=== PATIENT | female | born 1990 | race Caucasian/White ===

== ENCOUNTER → 2019-09-25 | Outpatient (CLI) | payer BC ==
[~2019-09-25] MED LIST: LEVO50TA6 PO; OXYC1TAB12 PO
--- NOTE | 2019-09-25 14:08 | Diagnostic Imaging Report ---
INDICATION: Thumb pain. Three views were obtained. FINDINGS: The alignment is normal. There is no fracture or dislocation. Soft tissues are unremarkable. IMPRESSION: No acute fracture or dislocation. Dictated by: Dictated on workstation # [id number]
== END ==
LOC: RAD FS 13:54
PROVIDERS: ATTEND Nurse Practitioner
DX: S63.602A Unspecified sprain of left thumb, initial encounter (principal); X58.XXXA Exposure to other specified factors, initial encounter
CPT/HCPCS: 73140

== ENCOUNTER 2021-05-12 16:16 | Emergency (ER) | payer BC ==
[~2021-05-12] VITALS: Ht 160 cm; Wt 63.5 kg
[2021-05-12 16:57] LABS: BILIRUBIN,URINE NEGATIVE (NEGATIVE); CLARITY,URINE CLEAR; COLOR,URINE PALE YELLOW; GLUCOSE, URINE (UA) NEGATIVE (NEGATIVE); KETONES,URINE NEGATIVE (NEGATIVE); LEUKOCYTE ESTERASE ,URINE 2+ (NEGATIVE); NITRITE,URINE NEGATIVE (NEGATIVE); PROTEIN,URINE NEGATIVE (NEGATIVE)
[2021-05-12 16:58] LABS: BACTERIA,URINE TRACE /HPF; RBC,URINE RARE /HPF; SQUAMOUS EPITHELIAL CELL,UR 0-2 /HPF
--- NOTE | 2021-05-12 17:04 | ED GU-Female ---
General Chief Complaint: OB < 20 WEEKS Stated Complaint: OB,VAGINAL BLEEDING Nursing Triage Note: PT ARRIVED BY PRIVATE VEHICLE WITH VAGINAL BLEEDING AND 10 WEEKS . PT WAS ALERT, ORIENTED X 4 AND AMBULATORY. PT PROVIDED URINE SAMPLE ON ARRIVAL AND AMBULATED TO ROOM 2. PT'S VITALS WERE DONE. PT STATED ONSET WAS AFTER SCHOOL AROUND 1530 WHEN SHE NOTICED SHE HAD BEEN BLEEDING. SHE STATED IT WAS NOT WHEN URINATING, BUT IN THE BOTTOM OF HER UNDERWEAR. PT STATED SHE IS 11 WEEKS TOMORROW AND HER OBGYN IS DR. PYLE. PT HAS SEEN LASHANDA AND SHE HAS DONE AN US. REPORT WAS GIVNE TO PROVIDER. Source: patient Exam Limitations: no limitations (NANCY EL MD) History of Present Illness Date Seen by Provider: May 12, 2021 Time Seen by Provider: 16:36 Initial Comments Here with report of vaginal bleeding x1 today and had a quarter size clot in her underwear after work. No persistent bleeding since. Denies vaginal cramping or pain. Last sexual activity 2 nights ago. No pain with that. Denies vaginal discharge otherwise. History of 2 previous live births and 1 miscarriage in between. This is her fourth . She reports being a negative and has to receive RhoGam. Her is be positive blood type. Denies nausea, vomiting or weakness Timing/Duration: this afternoon Severity/Quality: mild Location: vaginal Radiation: none Activities at Onset: none Sexual [place] History: less than 2 months ago, single partner Modifying Factors: Improves With Resting Associated Symptoms: No abdominal pain, No dysuria, No fever/chills, No nausea/vomiting (NANCY EL MD) Allergies and Home Medications Allergies Coded Allergies: No Known Drug Allergies (Unverified , 10/08/15) Patient Home Medication List Home Medication List Reviewed: Yes (NANCY EL MD) Levothyroxine Sodium (Levothyroxine Sodium) 50 Mcg Tablet, 50 MCG PO DAILY, (Reported) Entered as Reported by: JUDY SANTOS on 10/08/15 0942 Oxycodone HCl/Acetaminophen (Percocet 10-325 mg Tablet) 1 Each Tablet, 1-2 TAB PO Q4H PRN for PAIN Prescribed by: YAS HARKINS on 10/09/15 8589 Review of Systems Review of Systems Constitutional: No chills, No fever Respiratory: No cough, No short of breath Cardiovascular: no symptoms reported Gastrointestinal: No abdominal pain, No nausea, No vomiting Genitourinary: see HPI : Yes Psychiatric/Neurological: No Symptoms Reported (NANCY EL MD) Past Mnidiwy-Nqfvvz-Xwjqaq Hx Patient Social History Tobacco Use?: No Smoking Status: Never a Smoker Smokeless Tobacco Frequency: Never a User Substance use?: No Alcohol Use?: No Pt feels they are or have been: No (NANCY EL MD) Immunizations Up To Date First/Initial COVID19 Vaccinat: N/A Second COVID19 Vaccination Andrea: N/A 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 Final: N/A (NANCY EL MD) Past Medical History Surgeries: Yes (D&C) : Yes Last Menstrual Period: Feb 14, 2021 Reproductive Disorders: Yes (BLIGHTED OVUM, FIRST MISCARRIAGE) Female Reproductive Disorders: Menstrual Problems, Endometriosis, Ovarian Cyst HIV/AIDS: No Kidney Infection 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 oz. 61.941526xm; 24.00 BMI Method: General Appearance: WD/WN, no apparent distress Cardiovascular: regular rate, rhythm, no murmur Respiratory: lungs clear, normal breath sounds Gastrointestinal: non tender, soft, no organomegaly, no pulsatile mass Neurologic/Psychiatric: alert, oriented x 3 Skin: normal color, warm/dry (NANCY EL MD) Progress/Results/Core Measures Suspected Sepsis SIRS Temperature: Pulse: 104 Respiratory Rate: 18 Blood Pressure 129 /90 Mean: 103 (NANCY EL MD) Results/Orders Lab Results Laboratory Tests Test 05/12/21 16:28 05/12/21 18:13 Range/Units Urine Color PALE YELLOW Urine Clarity CLEAR Urine pH 6.0 5-9 Urine Specific [place] <=1.005 1.016-1.022 Urine Protein NEGATIVE NEGATIVE Urine Glucose (UA) NEGATIVE NEGATIVE Urine Ketones NEGATIVE NEGATIVE Urine Nitrite NEGATIVE NEGATIVE Urine Bilirubin NEGATIVE NEGATIVE Urine Urobilinogen 0.2 < = 1.0 MG/DL Urine Leukocyte Esterase 2+ H NEGATIVE Urine RBC (Auto) 2+ H NEGATIVE Urine RBC RARE /HPF Urine WBC 2-5 /HPF Urine Squamous Epithelial Cells 0-2 /HPF Urine Crystals NONE /LPF Urine Bacteria TRACE /HPF Urine Casts NONE /LPF Urine Mucus NEGATIVE /LPF Urine Culture Indicated NO White Blood Count 8.8 4.3-11.0 10^3/uL Red Blood Count 3.83 3.80-5.11 10^6/uL Hemoglobin 11.5 11.5-16.0 g/dL Hematocrit 34 L 35-52 % Mean Corpuscular Volume 88 80-99 fL Mean Corpuscular Hemoglobin 30 25-34 pg Mean Corpuscular Hemoglobin Concent 34 32-36 g/dL Red Cell Distribution Width 12.1 10.0-14.5 % Platelet Count 198 130-400 10^3/uL Mean Platelet Volume 9.7 9.0-12.2 fL Immature Granulocyte % (Auto) 0 % Neutrophils (%) (Auto) 57 42-75 % Lymphocytes (%) (Auto) 36 12-44 % Monocytes (%) (Auto) 5 0-12 % Eosinophils (%) (Auto) 1 0-10 % Basophils (%) (Auto) 0 0-10 % Neutrophils # (Auto) 5.0 1.8-7.8 10^3/uL Lymphocytes # (Auto) 3.2 1.0-4.0 10^3/uL Monocytes # (Auto) 0.5 0.0-1.0 10^3/uL Eosinophils # (Auto) 0.1 0.0-0.3 10^3/uL Basophils # (Auto) 0.0 0.0-0.1 10^3/uL Immature Granulocyte # (Auto) 0.0 0.0-0.1 10^3/uL (RADHA VARGAS MD) My Orders Orders - RADHA VARGAS MD Abo Rh Type (05/12/21 17:57) Cbc With Automated Diff (05/12/21 18:07) Rh Immune Globulin Rhophylac (05/12/21 19:09) Rhogam Administration (05/12/21 19:09) (RADHA VARGAS MD) Vital Signs/I&O 05/12/21 05/12/21 05/12/21 16:26 16:59 20:01 Temp 36.8 36.8 Pulse 104 88 86 Resp 18 16 16 B/P (MAP) 129/90 (103) 117/81 (93) 107/60 Pulse Ox 96 99 98 O2 Delivery Room Air Room Air Room Air (RADHA VARGAS MD) Vital Signs/I&O Capillary Refill : Less Than 3 Seconds (NANCY EL MD) Blood Pressure Mean: 103 Progress Note : Progress Note Seen and evaluated. Bedside ultrasound performed and showed positive movement with heart tones approximately 140 and adequate amount of fluid. Unable to perform measurements for dating. Patient is a negative blood type per history. She will require RhoGam. This is unavailable at the hospital outpatient department emergency department so she will be sent to main ED for ABO Rh testing and RhoGam administration as indicated. I did discuss the case with Dr. Bello and she or other partner will see patient department there and initiate orders. This is discussed with patient and family and they are comfortable driving to the other department. She will go directly there. Report given by nursing. I did discuss the case with Dr. Maki, on-call for [facility]. He will follow-up with Dr. Pyle for outpatient ultrasound and follow-up appointment. This was discussed with the patient as well. She will call Dr. Pyle's office in the morning as well. (NANCY EL MD) Progress Note : Progress Note A negative blood type was confirmed. Patient received RhoGam injection. (RADHA VARGAS MD) Departure Impression Primary Impression: Threatened miscarriage in early Additional Impression: Rh negative status during Qualified Codes: O26.891 - Other specified related conditions, first trimester; Z67.91 - Unspecified blood type, rh negative Disposition: 01 HOME, SELF-CARE Condition: Stable Departure-Patient Inst. Referrals: NILAM PYLE MD (PCP/Family) Primary Care Physician Patient Instructions: Threatened Miscarriage (DC) Add. Discharge Instructions: All discharge instructions reviewed with patient and/or family. Voiced understanding. Call Dr. Pyle's office in the morning for appointment and recheck including ultrasound. Return for bleeding greater than 2 pads per hour for more than 2 hours, increased pain, weakness, breathing problems or other concerns as needed. You should follow pelvic rest (nothing intravaginal) until cleared by your doct or. Refrain from heavy lifting. Copy Copies To 1: NILAM PYLE MD, TIMOTHY D MD May 12, 2021 17:04 RADHA VARGAS MD May 12, 2021 19:12
[2021-05-12 18:22] LABS: BASOPHILS % (AUTO) 0 % (0-10); EOSINOPHILS # (AUTO) 0.1 10^3/uL (0.0-0.3); EOSINOPHILS % (AUTO) 1 % (0-10); HEMATOCRIT 34 % (35-52); HEMOGLOBIN 11.5 g/dL (11.5-16.0); LYMPHOCYTES # (AUTO) 3.2 10^3/uL (1.0-4.0); LYMPHOCYTES % (AUTO) 36 % (12-44); MEAN CORPUSCULAR HEMOGLOBIN 30 pg (25-34); MEAN CORPUSCULAR HGB CONC 34 g/dL (32-36); MEAN CORPUSCULAR VOLUME 88 fL (80-99); MEAN PLATELET VOLUME 9.7 fL (9.0-12.2); MONOCYTES # (AUTO) 0.5 10^3/uL (0.0-1.0); MONOCYTES % (AUTO) 5 % (0-12); NEUTROPHILS % (AUTO) 57 % (42-75); PLATELET COUNT 198 10^3/uL (130-400); WHITE BLOOD COUNT 8.8 10^3/uL (4.3-11.0)
[2021-05-12 20:01] VITALS: BP 107/60
== END 2021-05-12 20:02 | disposition home or self-care (01) ==
LOC: EDUNIT# 16:16 → ER FS 16:18 → ER 20:02
DX: O20.0 Threatened abortion (principal); E03.9 Hypothyroidism, unspecified; Z79.890 Hormone replacement therapy; Z67.91 Unspecified blood type, Rh negative; Z3A.00 Weeks of gestation of pregnancy not specified; Z79.899 Other long term (current) drug therapy
CPT/HCPCS: 36415; 81000; 85025; 86900; 86901; 96372

== ENCOUNTER 2021-06-18 08:57 | Outpatient (CLI) | payer BC ==
[~2021-06-18] VITALS: Ht 160 cm; Wt 63.5 kg
[2021-06-18] MEDS ORDERED: diphenhydrAMINE 50 MG/ML INJ (BENADRYL) IV PRN (09:00)
[2021-06-18] MEDS ORDERED: EPINEPHrine INJECTION 1 MG/ML AMP IM PRN (09:00)
[2021-06-18] MEDS ORDERED: CASIRIVIMAB/IMDEVIMAB 1,200 MG in NS (IVPB) 250 ML IV ONE (09:00)
[2021-06-18] MEDS ORDERED: ONDANSETRON 4 MG/2 ML (SDV) Z0FRAN IV PRN (09:00)
[2021-06-18] MEDS ORDERED: ACETAMINOPHEN 500 MG TAB (TYLENOL) PO PRN (09:00)
[2021-06-18 09:15] VITALS: BP 104/67
[2021-06-18 10:35] VITALS: BP 101/63
== END 2021-06-18 10:40 | disposition home or self-care (01) ==
LOC: INFUSION 08:57
PROVIDERS: ATTEND Nurse Practitioner Family
DX: U07.1 COVID-19 (principal)

== ENCOUNTER 2021-11-30 17:47 | Inpatient (IN) | payer BC ==
[~2021-11-30] VITALS: Ht 160 cm; Wt 74.0 kg
[2021-11-30] VITALS (13 sets, daily range): BP systolic 102–133; BP diastolic 61–89
[2021-11-30] MEDS ORDERED: D5 LR IV SOLUTION 1,000 ML IV ONE (18:19)
[2021-11-30] MEDS: D5 LR IV SOLUTION 1,000 ML IV SCH (19:36)
[2021-11-30 19:42] LABS: BASOPHILS % (AUTO) 0 % (0-10); EOSINOPHILS # (AUTO) 0.1 10^3/uL (0.0-0.3); EOSINOPHILS % (AUTO) 0 % (0-10); HEMATOCRIT 34 % (35-52); HEMOGLOBIN 10.7 g/dL (11.5-16.0); LYMPHOCYTES % (AUTO) 26 % (12-44); MEAN CORPUSCULAR HEMOGLOBIN 26 pg (25-34); MEAN CORPUSCULAR HGB CONC 32 g/dL (32-36); MEAN CORPUSCULAR VOLUME 82 fL (80-99); MEAN PLATELET VOLUME 12.1 fL (9.0-12.2); MONOCYTES # (AUTO) 0.5 10^3/uL (0.0-1.0); MONOCYTES % (AUTO) 4 % (0-12); NEUTROPHILS # (AUTO) 7.9 10^3/uL (1.8-7.8); NEUTROPHILS % (AUTO) 69 % (42-75); PLATELET COUNT 221 10^3/uL (130-400); WHITE BLOOD COUNT 11.6 10^3/uL (4.3-11.0)
[2021-11-30] MEDS ORDERED: LIDOCAINE/EPI 2% 1:200,00 (XYLOCAINE) 20 ML VIAL INJ PRN (19:45)
[2021-11-30] MEDS ORDERED: MINERAL OIL 30 ML TOP PRN (19:45)
[2021-11-30 21:17] LABS: BILIRUBIN,URINE NEGATIVE (NEGATIVE); CLARITY,URINE CLEAR; COLOR,URINE YELLOW; GLUCOSE, URINE (UA) NEGATIVE (NEGATIVE); KETONES,URINE 1+ (NEGATIVE); LEUKOCYTE ESTERASE ,URINE 3+ (NEGATIVE); NITRITE,URINE NEGATIVE (NEGATIVE); PH,URINE 6.5 (5-9); PROTEIN,URINE NEGATIVE (NEGATIVE)
[2021-11-30 21:25] LABS: BACTERIA,URINE FEW /HPF
[2021-11-30] MEDS ORDERED: fentaNYL 2 mcg/ml BUPIVA 0.125 100 ML ONE (22:01)
[2021-11-30] MEDS ORDERED: ONDANSETRON 4 MG/2 ML (SDV) Z0FRAN IV PRN (22:30)
[2021-11-30] MEDS ORDERED: fentaNYL INJ 100 MCG/2 ML AMP ONE (22:30)
[2021-11-30] MEDS ORDERED: BUPIVACAINE 0.25% 10 ML (SENSORCAINE) VIAL ONE (22:30)
[2021-11-30] MEDS ORDERED: LACTATED RINGERS 1,000 ML IV ONE ×2 (22:30)
[2021-11-30] MEDS ORDERED: fentaNYL INJ 100 MCG/2 ML AMP IJ ONE (22:30)
[2021-11-30] MEDS ORDERED: NALOXONE 0.4 MG/ML 1 ML (NARCAN) VIAL IV PRN (22:30)
[2021-11-30] MEDS: EPIDURAL (fentaNYL 2 MCG/ML BUPIVA 0.125%)100 ML BAG EPI PRN (22:47)
[2021-12-01] VITALS (47 sets, daily range): BP systolic 95–137; BP diastolic 56–91
[2021-12-01] MEDS: D5 LR IV SOLUTION 1,000 ML IV SCH (02:20)
[2021-12-01] MEDS: EPIDURAL (fentaNYL 2 MCG/ML BUPIVA 0.125%)100 ML BAG EPI PRN (06:44)
[2021-12-01] MEDS: CATHETER FLUSH 10 ML SYR IV SCH ×6 (07:16→20:29)
[2021-12-01] MEDS ORDERED: LIDOCAINE/EPI 2% 1:200,00 (XYLOCAINE) 10 ML VIAL ONE (07:17)
[2021-12-01] MEDS ORDERED: OXYTOCIN PRE-MIX DRIP 500 ML IV ONE ×2 (07:18→10:25)
[2021-12-01] MEDS: OXYTOCIN PRE-MIX DRIP 500 ML IV SCH ×2 (09:53→10:27)
--- NOTE | 2021-12-01 10:31 | History & Physical-OB ---
OB - Chief Complaint & HPI Date/Time Date of Admission: Date of Admission: Nov 30, 2021 at 17:47 Date seen by a Provider: Dec 01, 2021 Time Seen by a Provider: 07:00 Chief Complaint/History OB-Reason for Admission/Chief: Onset of Labor Hx : 4 Hx Para: 2 Expected Date of Delivery: Dec 02, 2021 Gestational Age in Weeks: 39 Gestational Age in Days: 5 Other reason for admission: Patient was scheduled for IOL but came in in active labor. History of Labs A-, Ab neg , Rub Imm HIV/RPR/HepB/C NR Normal 1 hr GTT GBS neg Allergies and Home Medications Allergies Coded Allergies: Influenza Virus Vaccines (Verified Allergy, Severe, Anaphylaxis, 11/30/21) Patient Home Medication List Home Medication List Reviewed: Yes Levothyroxine Sodium (Levothyroxine Sodium) 50 Mcg Tablet, 50 MCG PO DAILY, (Reported) Entered as Reported by: JUDY SANTOS on 10/08/15 0929 Oxycodone HCl/Acetaminophen (Percocet 10-325 mg Tablet) 1 Each Tablet, 1-2 TAB PO Q4H PRN for PAIN Prescribed by: YAS HARKINS on 10/09/15 0733 OB - History Hx of Present Care: Yes Ultrasounds: Normal mid trimester US Obstetrical Complications: None Medical Complications: None Obstetrical History Hx : 4 Hx # Term Pregnancies: 2 Number of Living Children: 2 Delivery History Hx Blood Disorders: No Adverse Rxn to Tranfusion: No Patient Past Medical History None Social History/Family History Alcohol Use: Denies Use Smoking Cessation: Former smoker Immunizations Influenza Vaccine Up-to-Date: No; Not Current First/Initial COVID19 Vaccine: N/A Second COVID19 Vaccination: N/A Third COVID19 Vaccination Date: N/A Tetanus Booster (TDap): Less than 5yrs Rubella: immune RPR/VDRL: Negative GBS Status: Negative HBsAG: Negative OB - Admission Exam Physical Exam Vitals: Vital Signs 11/30/21 11/30/21 12/01/21 12/01/21 19:30 22:57 09:04 09:19 Temp 37.0 Pulse 88 Resp 20 B/P (MAP) 121/78 (92) Pulse Ox 97 O2 Delivery Room Air HEENT: NCAT Heart: Rhythm Normal Lungs: Clear Abdomen: Gravid Cervical Dilatation: 7cm Effacement: 100% Station: -1 Membranes: Intact Heart Rate: 130's Accelerations: Accelerations Present Decelerations: No Decelerations Contractions on Admission: < 5 Minutes Apart Intensity: Moderate Labs Laboratory Tests Test 11/30/21 18:30 11/30/21 21:12 Range/Units White Blood Count 11.6 H 4.3-11.0 10^3/uL Red Blood Count 4.12 3.80-5.11 10^6/uL Hemoglobin 10.7 L 11.5-16.0 g/dL Hematocrit 34 L 35-52 % Mean Corpuscular Volume 82 80-99 fL Mean Corpuscular Hemoglobin 26 25-34 pg Mean Corpuscular Hemoglobin Concent 32 32-36 g/dL Red Cell Distribution Width 18.1 H 10.0-14.5 % Platelet Count 221 130-400 10^3/uL Mean Platelet Volume 12.1 9.0-12.2 fL Immature Granulocyte % (Auto) 1 % Neutrophils (%) (Auto) 69 42-75 % Lymphocytes (%) (Auto) 26 12-44 % Monocytes (%) (Auto) 4 0-12 % Eosinophils (%) (Auto) 0 0-10 % Basophils (%) (Auto) 0 0-10 % Neutrophils # (Auto) 7.9 H 1.8-7.8 10^3/uL Lymphocytes # (Auto) 3.0 1.0-4.0 10^3/uL Monocytes # (Auto) 0.5 0.0-1.0 10^3/uL Eosinophils # (Auto) 0.1 0.0-0.3 10^3/uL Basophils # (Auto) 0.0 0.0-0.1 10^3/uL Immature Granulocyte # (Auto) 0.1 0.0-0.1 10^3/uL Urine Color YELLOW Urine Clarity CLEAR Urine pH 6.5 5-9 Urine Specific [place] 1.020 1.016-1.022 Urine Protein NEGATIVE NEGATIVE Urine Glucose (UA) NEGATIVE NEGATIVE Urine Ketones 1+ H NEGATIVE Urine Nitrite NEGATIVE NEGATIVE Urine Bilirubin NEGATIVE NEGATIVE Urine Urobilinogen 0.2 < = 1.0 MG/DL Urine Leukocyte Esterase 3+ H NEGATIVE Urine RBC (Auto) NEGATIVE NEGATIVE Urine RBC 5-10 H /HPF Urine WBC 5-10 H /HPF Urine Squamous Epithelial Cells 2-5 /HPF Urine Renal Epithelial Cells NONE /HPF Urine Crystals NONE /LPF Urine Bacteria FEW H /HPF Urine Casts NONE /LPF Urine Mucus NEGATIVE /LPF Urine Culture Indicated YES OB - Assessment/Plan/Diagnosis Assessment Assessment: active labor Admission Dx Third Trimester 39 week gestation Admission Status: Inpatient Order (span 2 midnights) Reason for Inpatient Admission: Labor Plan Other Plan 31 yo @ 39.6 wga here in active labor Plan Expectant management GBS neg Epidural when desired NILAM PYLE MD Dec 01, 2021 10:30
--- NOTE | 2021-12-01 10:32 | OB Labor & Delivery Record ---
Vag Delivery Note Vag Delivery Note Date of Delivery: 12/01/21 Preoperative Diagnosis: Ale Li is a (31 /Para 4 / 2,Gestational Age (wks)39.6 here in active labor Postoperative Diagnosis: Same Surgeon: NILAM PYLE MD Rail Car Repairer: None Anesthesia: Epidural Delivery Type: @ 0949 Findings: Viable female , apgars 9/9, weight 8#8, 3860 grams Lacerations: None Intact placenta with 3 vessel cord. No nuchal cord, body cord or shoulder dystocia Estimated Blood Loss: 150 ml Complications: None Condition: Stable Description of Procedure: The patient is a 31 year old female who presented []. She was admitted and informed consent was obtained. Her labor course was remarkable for [] She prog ressed to complete dilatation and began to push. She was then set up for delivery. The 's head was delivered atraumatically in the [] position. The shoulders and remainder of the 's body were then delivered without difficulty. Upon delivery, the head was held below the level of the perineum and the mouth and nares were bulb suctioned. The cord was doubly clamped and cut and the was handed off to the pediatric staff. An intact placenta with 3-vessel cord delivered via Fidel and there was found to be minimal bleeding.~ Vigorous fundal massage was performed and the fundus was found to be firm. IV oxytocin was given. Examination of the vagina and perineum revealed a [] laceration repaired in the usual fashion with 3-0 vicryl suture. Following the repair, sponge, instrument and needle counts were correct. Mom and baby were both in stable condition in the labor suite. Vitals - Labs Vital Signs - I&O Vital Signs Date Time Temp Pulse Resp B/P (MAP) Pulse Ox O2 Delivery O2 Flow Rate FiO2 12/01/21 09:19 88 20 121/78 (92) 12/01/21 09:04 37.0 75 20 137/91 (106) 12/01/21 08:48 75 121/65 (83) 12/01/21 08:35 86 119/75 (90) 12/01/21 08:21 86 121/76 (91) 12/01/21 08:05 37.0 87 14 118/75 (89) 12/01/21 07:49 81 112/74 (87) 12/01/21 07:33 85 18 118/65 (82) 12/01/21 07:19 36.9 75 16 119/72 (88) 12/01/21 06:50 37.0 106 18 109/74 (86) 12/01/21 06:35 78 18 118/77 (91) 12/01/21 06:18 83 18 114/74 (87) 12/01/21 06:04 98 18 113/72 (86) 12/01/21 05:48 74 18 119/69 (86) 12/01/21 05:34 82 18 118/75 (89) 12/01/21 05:19 78 18 116/72 (87) 12/01/21 05:04 75 18 118/66 (83) 12/01/21 04:48 93 18 111/69 (83) 12/01/21 04:33 123 18 118/71 (87) 12/01/21 04:19 85 18 112/70 (84) 12/01/21 04:03 115 18 107/68 (81) 12/01/21 03:47 121 18 117/73 (88) 12/01/21 03:33 100 18 114/66 (82) 12/01/21 03:18 112 18 103/64 (77) 12/01/21 03:04 78 18 107/67 (80) 12/01/21 02:49 91 18 105/61 (76) 12/01/21 02:33 84 18 109/56 (73) 12/01/21 02:20 102 18 122/56 (78) 12/01/21 02:02 120 18 102/58 (73) 12/01/21 01:47 86 18 111/70 (84) 12/01/21 01:33 86 18 112/70 (84) 12/01/21 01:19 94 18 113/71 (85) 12/01/21 01:04 113 18 109/71 (84) 12/01/21 00:48 98 18 114/74 (87) 12/01/21 00:34 78 18 114/66 (82) 12/01/21 00:18 105 18 108/68 (81) 12/01/21 00:02 83 18 108/68 (81) 11/30/21 23:48 75 18 111/70 (84) 11/30/21 23:33 96 18 110/73 (85) 11/30/21 22:58 75 18 110/66 (81) 11/30/21 22:57 80 18 120/65 (83) 97 11/30/21 22:55 88 18 120/66 (84) 95 11/30/21 22:53 113 18 102/61 (75) 95 11/30/21 22:44 85 18 119/69 (86) 98 11/30/21 22:40 82 18 129/79 (96) 98 11/30/21 22:26 86 18 125/85 (98) 11/30/21 21:16 87 18 112/70 (84) 11/30/21 20:17 71 18 117/71 (86) 11/30/21 19:30 37.1 70 18 99 Room Air 11/30/21 18:21 37.1 70 18 133/89 (104) 97 Room Air I & O 12/01/21 07:00 Intake Total 2000 ml Balance 2000 ml Labs Laboratory Tests 11/30/21 18:30: White Blood Count 11.6H, Red Blood Count 4.12, Hemoglobin 10.7L, Hematocrit 34L, Mean Corpuscular Volume 82, Mean Corpuscular Hemoglobin 26, Mean Corpuscular Hemoglobin Concent 32, Red Cell Distribution Width 18.1H, Platelet Count 221, Mean Platelet Volume 12.1, Immature Granulocyte % (Auto) 1, Neutrophils (%) (Auto) 69, Lymphocytes (%) (Auto) 26, Monocytes (%) (Auto) 4, Eosinophils (%) (Auto) 0, Basophils (%) (Auto) 0, Neutrophils # (Auto) 7.9H, Lymphocytes # (Auto) 3.0, Monocytes # (Auto) 0.5, Eosinophils # (Auto) 0.1, Basophils # (Auto) 0.0, Immature Granulocyte # (Auto) 0.1 11/30/21 21:12: Urine Color YELLOW, Urine Clarity CLEAR, Urine pH 6.5, Urine Specific [place] 1.020, Urine Protein NEGATIVE, Urine Glucose (UA) NEGATIVE, Urine Ketones 1+H, Urine Nitrite NEGATIVE, Urine Bilirubin NEGATIVE, Urine Urobilinogen 0.2, Urine Leukocyte Esterase 3+H, Urine RBC (Auto) NEGATIVE, Urine RBC 5-10H, Urine WBC 5- 10H, Urine Squamous Epithelial Cells 2-5, Urine Renal Epithelial Cells NONE, Urine Crystals NONE, Urine Bacteria FEWH, Urine Casts NONE, Urine Mucus NEGATIVE, Urine Culture Indicated YES NILAM PYLE MD Dec 01, 2021 10:32
[2021-12-01] MEDS ORDERED: BENZOCAINE/MENTHOL (DERMOPLAST) 56 ML CAN TP PRN (10:45)
[2021-12-01] MEDS ORDERED: TETANUS,DIPTH,PERTUSS P/F (BOOSTRIX) 0.5 ML VIAL IM ONE (10:45)
[2021-12-01] MEDS ORDERED: WITCH HAZEL(TUCKS) 40 EA JAR TOP PRN (10:45)
[2021-12-01] MEDS: IBUPROFEN 600 MG (MOTRIN) TAB PO SCH ×3 (12:34→22:08)
[2021-12-01] MEDS: ACETAMINOPHEN 500 MG TAB (TYLENOL) PO SCH ×2 (12:34→20:25)
--- NOTE | 2021-12-01 14:01 | Anesthesia-Regional Post-Op ---
Regional Patient Condition Mental Status: Alert, Oriented x3 Circulation: Same as Pre-Op Headache: Absent Sensation: Full Recovery Motor Block: Absent Post Op Complications Complications None Follow Up Care/Instructions Patient Instructions None needed. Anesthesia/Patient Condition Patient is doing well, no complaints, stable vital signs, no apparent adverse anesthesia problems. SELIN MCCRAY DO Dec 01, 2021 14:01
[2021-12-01] MEDS: DOCUSATE SODIUM 100 MG (COLACE) CAP PO SCH (20:21)
[2021-12-02 00:43] VITALS: BP 111/57
[2021-12-02] MEDS: IBUPROFEN 600 MG (MOTRIN) TAB PO SCH ×2 (04:24→12:18)
[2021-12-02] MEDS: ACETAMINOPHEN 500 MG TAB (TYLENOL) PO SCH ×3 (04:29→12:18)
[2021-12-02 04:30] VITALS: BP 126/82
[2021-12-02 06:41] LABS: BASOPHILS % (AUTO) 0 % (0-10); EOSINOPHILS % (AUTO) 0 % (0-10); HEMATOCRIT 29 % (35-52); HEMOGLOBIN 9.3 g/dL (11.5-16.0); LYMPHOCYTES # (AUTO) 2.5 10^3/uL (1.0-4.0); LYMPHOCYTES % (AUTO) 19 % (12-44); MEAN CORPUSCULAR HEMOGLOBIN 27 pg (25-34); MEAN CORPUSCULAR HGB CONC 32 g/dL (32-36); MEAN CORPUSCULAR VOLUME 83 fL (80-99); MEAN PLATELET VOLUME 11.7 fL (9.0-12.2); MONOCYTES # (AUTO) 0.6 10^3/uL (0.0-1.0); MONOCYTES % (AUTO) 4 % (0-12); NEUTROPHILS # (AUTO) 9.8 10^3/uL (1.8-7.8); NEUTROPHILS % (AUTO) 76 % (42-75); PLATELET COUNT 175 10^3/uL (130-400)
[2021-12-02 08:39] VITALS: BP 119/73
[2021-12-02] MEDS: DOCUSATE SODIUM 100 MG (COLACE) CAP PO SCH (08:51)
[2021-12-02 12:14] VITALS: BP 116/69
--- NOTE | 2021-12-02 13:23 | Discharge Summary ---
Diagnosis/Chief Complaint Date of Admission Nov 30, 2021 at 17:47 Date of Discharge 12/02/21 Discharge Summary-Simple/Stand Discharge Physical Examination Allergies: Coded Allergies: Influenza Virus Vaccines (Verified Allergy, Severe, Anaphylaxis, 11/30/21) Vitals & I&Os Vital Sign - Last 12Hours Date Time Temp Pulse Resp B/P (MAP) Pulse Ox O2 Delivery O2 Flow Rate FiO2 12/02/21 12:14 36.7 91 16 116/69 (85) 97 Room Air Hospital Course See final discharge diagnosis. Discharge Instructions to patient/family Please see electronic discharge instructions given to patient. Discharge Medications Reviewed and agree with Discharge Medication list on patient's Discharge Instruction sheet NILAM PYLE MD Dec 02, 2021 13:23
[2021-12-02] MEDS ORDERED: DOCU100C37 PO (13:25)
[2021-12-02] MEDS ORDERED: IBUP-844 PO (13:25)
--- NOTE | 2021-12-02 13:25 | Discharge Summary ---
Discharge Inst-[facility] Reconcile Patient Problems Problems Reviewed?: Yes Depart Medications New, Converted or Re-Newed RX: Transmitted to Pharmacy New Medications: Docusate Sodium (Docusate Sodium) 100 Mg Capsule 100 MG PO BID, #20 CAP Ibuprofen (Ibu) 600 Mg Tablet 600 MG PO Q6HR, #90 TAB Continued Medications: Levothyroxine Sodium (Levothyroxine Sodium) 50 Mcg Tablet 50 MCG PO DAILY, TAB Discontinued Medications: Oxycodone HCl/Acetaminophen (Percocet 10-325 mg Tablet) 1 Each Tablet 1-2 TAB PO Q4H PRN for PAIN, #60 TAB Follow Up/Instructions Goal/Follow Up: [address] Ng Activity Activity: Activity as Tolerated Driving Instructions: You May Drive NO SMOKING: NO SMOKING Nothing Inside Vagina: No Douching, No [place], No Tampons Diet Discharge Diet: No Restrictions Symptoms to Report to : Swelling Increased, Bleeding Excessive, Fever Over 101 Degrees F NILAM NG MD Dec 02, 2021 13:25
[2021-12-02 13:46] VITALS: BP 116/69
== END 2021-12-02 14:30 | disposition home or self-care (01) | DRG 807 ==
LOC: LDRP 17:47
PROVIDERS: ADMIT Family Medicine; ATTEND Family Medicine
PROC: 10E0XZZ Delivery of Products of Conception, External Approach (ICD-10-PCS; principal; 2021-12-01)
DX: O99.284 Endocrine, nutritional and metabolic diseases complicating childbirth (principal); Z37.0 Single live birth; Z3A.39 39 weeks gestation of pregnancy; Z87.891 Personal history of nicotine dependence; Z88.7 Allergy status to serum and vaccine; Z28.310 Unvaccinated for COVID-19; Z79.890 Hormone replacement therapy; E06.3 Autoimmune thyroiditis; Z28.9 Immunization not carried out for unspecified reason
CPT/HCPCS: 36415; 81000; 83033; 85025; 86850; 86900; 86901; 87088